=== PATIENT | male | born 1995 | race American Indian/Alaskan Native ===

== ENCOUNTER 2022-04-21 07:27 | Inpatient (IN) | payer SELFPAY ==
[2022-04-21] MEDS ORDERED: ONDANSETRON 4 MG/2 ML INJ IV ONE (08:02)
[2022-04-21] MEDS ORDERED: DICYCLOMINE 20 MG TAB PO ONE (08:02)
[2022-04-21] MEDS ORDERED: MORPHINE 4 MG/1 ML INJ IV ONE (08:02)
[2022-04-21] MEDS ORDERED: SODIUM CHLORIDE 0.9% 1000 ML 1,000 ML IV ONE (08:02)
[2022-04-21 09:04] LABS: Hematocrit 47.8 % (35.5-45.6); Hemoglobin 16.1 gm/dl (11.8-15.2); Mean Corpuscular HGB Conc 34 % (32-34); Mean Corpuscular Volume 95 fl (84-94); Platelet Count 347 K/mm3 (140-440); Red Blood Count 5.03 M/mm3 (3.65-5.03); Red Cell Distribution Width 15.1 % (13.2-15.2)
[2022-04-21] MEDS ORDERED: HYDROmorphone 1 MG/1 ML INJ IV ONE (09:13)
[2022-04-21 09:26] LABS: Alanine Aminotransferase 21 units/L (7-56); BUN/Creatinine Ratio 24; Blood Urea Nitrogen 19 mg/dL (9-20); Calcium 10.3 mg/dL (8.4-10.2); Hemolysis Index 24
[2022-04-21 10:15] LABS: Large Platelets Few; Platelet Estimate Consistent w Auto; Total Cells Counted 100
--- NOTE | 2022-04-21 10:25 | Cat Scan Report ---
CT ABDOMEN AND PELVIS WITH CONTRAST HISTORY: abd pain with n/v. Concern for appendicitis COMPARISON: None. TECHNIQUE: CT images of the abdomen and pelvis were obtained following administration of intravenous contrast. All CT scans at this location are performed using CT dose reduction for ALARA by means of automated exposure control. CONTRAST: 100 ml of intravenous contrast administered. FINDINGS: Lungs/bones: Lung bases are clear. No acute osseous abnormality identified. Abdomen/pelvis: There is considerable inflammatory change about the entire pancreas with probable re active inflammatory change along the duodenal C-loop. There is no organized fluid collection. No bili galileo or pancreatic ductal dilatation. No obvious stone disease or mass. No splenic vein thrombosis. Ho mogeneous pancreatic parenchyma. The liver, mildly distended but otherwise unremarkable gallbladder, spleen, adrenals, kidneys, and re mainder of the proximal GI tract appear unremarkable. The urinary bladder and prostate are unremarkable with no pelvic free fluid or acute colonic abnormal ity. IMPRESSION: 1. Moderate acute pancreatitis with no clear etiology seen on this exam. Signer Name: Shakir Curtis MD Signed: 04/21/2022 10:21 AM Workstation Name: [id number]
--- NOTE | 2022-04-21 10:51 | Emergency Department Report ---
<ANTWONGORDOFLORY - Last Filed: 04/21/22 11:11> ED Abdominal Pain HPI - General Chief Complaint: Abdominal Pain Stated Complaint: ABD PAIN/CHEST PAIN Time Seen by Provider: 04/21/22 08:01 Source: patient Mode of arrival: Ambulatory Limitations: No Limitations - History of Present Illness Initial Comments: This is a 26-year-old male nontoxic, well nourished in appearance, no acute signs of distress presents to the ED with c/o of nausea and vomiting and abdominal pain several days. Patient admits to alcohol consumption. Patient describes vomiting as food content and yellow gastric acid. Patient describes abdominal pain as cramping and aching with level of 10/10 diffuse with worse in the upper abdomen. Patient denies chest pain, short of breath, fever, hemoptysis, blood in stool, chills, headache, stiff neck, numbness or tingling. Patient denies any diarrhea or constipation. Denies any blood in stool. Patient denies any recent travels. Patient denies any allergies. MD Complaint: abdominal pain -: days(s) Location: diffuse Radiation: none Migration to: no migration Severity: mild Severity scale (0 -10): 10 Quality: cramping, aching Consistency: constant Improves With: nothing Worsens With: nothing Associated Symptoms: nausea, vomiting. denies: diarrhea, fever, chills, constipation, dysuria, hematemesis, hematochezia, melena, hematuria, anorexia, syncope - Related Data Allergies Allergy/AdvReac Type Severity Reaction Status Date / Time No Known Allergies Allergy Unverified 04/21/22 07:53 ED Review of Systems Comment: All other systems reviewed and negative Constitutional: denies: chills, fever Eyes: denies: eye pain, eye discharge, vision change ENT: denies: ear pain, throat pain Respiratory: denies: cough, shortness of breath, wheezing Cardiovascular: denies: chest pain, palpitations Endocrine: no symptoms reported Gastrointestinal: abdominal pain, nausea, vomiting. denies: diarrhea, constipation, hematemesis, melena, hematochezia Genitourinary: denies: urgency, dysuria Musculoskeletal: denies: back pain, joint swelling, arthralgia Skin: denies: rash, lesions Neurological: denies: headache, weakness, paresthesias Psychiatric: denies: anxiety, depression Hematological/Lymphatic: denies: easy bleeding, easy bruising ED Past Medical Hx - Past Medical History Previous Medical History?: No - Surgical History Past Surgical History?: No - Social History Smoking Status: Current Every Day Smoker Substance Use Type: Marijuana ED Physical Exam - General Limitations: No Limitations General appearance: alert, in no apparent distress - Head Head exam: Present: atraumatic, normocephalic - Eye Eye exam: Present: normal appearance - Neck Neck exam: Present: normal inspection, full ROM. Absent: lymphadenopathy - Respiratory Respiratory exam: Present: normal lung sounds bilaterally. Absent: respiratory distress, wheezes, rales, rhonchi, stridor, chest wall tenderness, accessory muscle use, decreased breath sounds, prolonged expiratory - Cardiovascular Cardiovascular Exam: Present: regular rate, normal rhythm, normal heart sounds. Absent: bradycardia, tachycardia, irregular rhythm, systolic murmur, diastolic murmur, rubs, gallop - GI/Abdominal GI/Abdominal exam: Present: soft, tenderness (diffuse), normal bowel sounds. Absent: distended, guarding, rebound, rigid, diminished bowel sounds - Extremities Exam Extremities exam: Present: normal inspection, full ROM, normal capillary refill. Absent: tenderness - Back Exam Back exam: Present: normal inspection, full ROM. Absent: tenderness, CVA tenderness (R), CVA tenderness (L), muscle spasm, paraspinal tenderness, vertebral tenderness, rash noted - Neurological Exam Neurological exam: Present: alert, oriented X3, normal gait - Psychiatric Psychiatric exam: Present: normal affect, normal mood - Skin Skin exam: Present: warm, dry, intact, normal color. Absent: rash ED Course - Reevaluation(s) Reevaluation #1: 04/21/22 10:48 Patient is speaking in full sentences with no signs of distress noted. - Consultations Consultation #1: 04/21/22 10:48 Patient has been consulted with Dr. Coley about patient history, physical exam, and labs/imaging results and agrees for admission.l Consultation #2: 04/21/22 11:11 Patient has been consulted with Dr. Presley about patient history, physical exam, and labs/imaging results and accepts patient to services. ED Medical Decision Making - Lab Data Result diagrams: 04/21/22 08:01 04/21/22 08:01 Lab Results 04/21/22 04/21/22 Range/Units 08:01 08:01 WBC 10.2 (4.5-11.0) K/mm3 RBC 5.03 (3.65-5.03) M/mm3 Hgb 16.1 H (11.8-15.2) gm/dl Hct 47.8 H (35.5-45.6) % MCV 95 H (84-94) fl MCH 32 (28-32) pg MCHC 34 (32-34) % RDW 15.1 (13.2-15.2) % Plt Count 347 (140-440) K/mm3 Add Manual Diff Complete Total Counted 100 Seg Neuts % (Manual) 71.0 H (40.0-70.0) % Band Neutrophils % 0 % Lymphocytes % (Manual) 15.0 (13.4-35.0) % Reactive Lymphs % (Man) 0 % Monocytes % (Manual) 8.0 H (0.0-7.3) % Eosinophils % (Manual) 1.0 (0.0-4.3) % Basophils % (Manual) 3.0 H (0.0-1.8) % Metamyelocytes % 2.0 % Myelocytes % 0 % Promyelocytes % 0 % Blast Cells % 0 % Nucleated RBC % Not Reportable Seg Neutrophils # Man 7.2 (1.8-7.7) K/mm3 Band Neutrophils # 0.0 K/mm3 Lymphocytes # (Manual) 1.5 (1.2-5.4) K/mm3 Abs React Lymphs (Man) 0.0 K/mm3 Monocytes # (Manual) 0.8 (0.0-0.8) K/mm3 Eosinophils # (Manual) 0.1 (0.0-0.4) K/mm3 Basophils # (Manual) 0.3 H (0.0-0.1) K/mm3 Metamyelocytes # 0.2 K/mm3 Myelocytes # 0.0 K/mm3 Promyelocytes # 0.0 K/mm3 Blast Cells # 0.0 K/mm3 WBC Morphology Not Reportable Hypersegmented Neuts Not Reportable Hyposegmented Neuts Not Reportable Hypogranular Neuts Not Reportable Smudge Cells Not Reportable Toxic Granulation Not Reportable Toxic Vacuolation Not Reportable Dohle Bodies Not Reportable Pelger-Huet Anomaly Not Reportable Marie Rods Not Reportable Platelet Estimate Consistent w auto Clumped Platelets Not Reportable Plt Clumps, EDTA Not Reportable Large Platelets Few Giant Platelets Not Reportable Platelet Satelliting Not Reportable Plt Morphology Comment Not Reportable RBC Morphology Not Reportable Dimorphic RBCs Not Reportable Polychromasia Not Reportable Hypochromasia Not Reportable Poikilocytosis Not Reportable Anisocytosis Not Reportable Microcytosis Not Reportable Macrocytosis Not Reportable Spherocytes Not Reportable Pappenheimer Bodies Not Reportable Sickle Cells Not Reportable Target Cells Not Reportable Tear Drop Cells Not Reportable Ovalocytes Not Reportable Helmet Cells Not Reportable [place] Bodies Not Reportable [place] Rings Not Reportable [place] Cells Not Reportable Bite Cells Not Reportable Crenated Cell Not Reportable Elliptocytes Not Reportable Acanthocytes (Spur) Not Reportable Rouleaux Not Reportable Hemoglobin C Crystals Not Reportable Schistocytes Not Reportable Malaria parasites Not Reportable Darryn Bodies Not Reportable Hem Pathologist Commnt No Sodium 137 (137-145) mmol/L Potassium 3.9 (3.6-5.0) mmol/L Chloride 97.8 L (98-107) mmol/L Carbon Dioxide 25 (22-30) mmol/L Anion Gap 18 mmol/L BUN 19 (9-20) mg/dL Creatinine 0.8 (0.8-1.3) mg/dL Estimated GFR > 60 ml/min BUN/Creatinine Ratio 24 % Glucose 145 H (75-100) mg/dL Calcium 10.3 H (8.4-10.2) mg/dL Total Bilirubin 1.40 H (0.1-1.2) mg/dL AST 32 (5-40) units/L ALT 21 (7-56) units/L Alkaline Phosphatase 84 (35-129) units/L Total Protein 8.8 H (6.3-8.2) g/dL Albumin 5.0 (3.9-5) g/dL Albumin/Globulin Ratio 1.3 % Lipase 2786 H (13-60) units/L - Radiology Data [facility] [address] [place] [address] Cat Scan Report Signed Patient: LLOYD ROSADO MR#: [id number] 93 : 1995 Acct:[id number] Age/Sex: 26 / M ADM Date: 04/21/22 Loc: ED Attending Dr: Ordering Physician: FLORY VEGA NP Date of Service: 04/21/22 Procedure(s): CT abdomen pelvis w con Accession Number(s): [id number] cc: FLORY VEGA NP CT ABDOMEN AND PELVIS WITH CONTRAST HISTORY: abd pain with n/v. Concern for appendicitis COMPARISON: None. TECHNIQUE: CT images of the abdomen and pelvis were obtained following administration of intravenous contrast. All CT scans at this location are performed using CT dose reduction for ALARA by means of automated exposure control. CONTRAST: 100 ml of intravenous contrast administered. FINDINGS: Lungs/bones: Lung bases are clear. No acute osseous abnormality identified. Abdomen/pelvis: There is considerable inflammatory change about the entire pancreas with probable reactive inflammatory change along the duodenal C-loop. There is no organized fluid collection. No biliary or pancreatic ductal dilatation. No obvious stone disease or mass. No splenic vein thrombosis. Homogeneous pancreatic parenchyma. The liver, mildly distended but otherwise unremarkable gallbladder, spleen, adrenals, kidneys, and remainder of the proximal GI tract appear unremarkable. The urinary bladder and prostate are unremarkable with no pelvic free fluid or acute colonic abnormality. IMPRESSION: 1. Moderate acute pancreatitis with no clear etiology seen on this exam. Signer Name: Shakir Curtis MD Signed: 04/21/2022 10:21 AM Workstation Name: [id number] Transcribed By: YADIRA Dictated By: Shakri Curtis MD Electronically Authenticated By: Shakir Curtis MD Signed Date/Time: 04/21/22 1021 DD/ 1018 TD/TT: - Medical Decision Making 26-year-old male that presents with acute pancreatitis. Patient is stable and was examined by me. Patient is notified of the lab results and CT results. Patient received medical treatment in ER which currently symptoms of pain is under control. Patient admitted with hospitalist. Educated on pancreatitis and alcohol consumption. At time of admission, the patient does not seem toxic or ill in appearance. No acute signs of distress noted. Patient agrees to admission treatment plan of care. No further questions noted by the patient. ED Disposition Clinical Impression: Elevated lipase Acute pancreatitis Qualifiers: Pancreatitis type: alcohol induced Acute pancreatitis complication: unspecified Qualified Code(s): K85.20 - Alcohol induced acute pancreatitis without necrosis or infection Nausea & vomiting Qualifiers: Vomiting type: unspecified Qualified Code(s): R11.2 - Nausea with vomiting, unspecified Abdominal pain Qualifiers: Abdominal location: generalized Qualified Code(s): R10.84 - Generalized abdominal pain Disposition: 09 ADMITTED INPATIENT Is pt being admited?: Yes Condition: Stable Referrals: FLORA FELIX MD [Primary Care Provider] - 3-5 Days Time of Disposition: 10:51 <CARMELO COLEY - Last Filed: 04/21/22 11:24> ED Review of Systems ROS: Stated complaint: ABD PAIN/CHEST PAIN Other details as noted in HPI ED Course Vital Signs 04/21/22 07:49 Temperature 97.8 F Pulse Rate 86 Respiratory 26 H Rate Blood Pressure 152/82 O2 Sat by Pulse 98 Oximetry - Reevaluation(s) Reevaluation #1: 04/21/22 11:24 Patient seen and examined, presenting with acute uncomplicated pancreatitis and markedly elevated lipase. Recommended admission for fluids, supportive care, and bowel rest. Patient agreeable to plan of care. Nurse practitioner to arrange admission with hospital physician. ED Medical Decision Making - Lab Data Result diagrams: 04/21/22 08:01 04/21/22 08:01 Critical care attestation.: If time is entered above; I have spent that time in minutes in the direct care of this critically ill patient, excluding procedure time. ED Disposition Is pt being admited?: Yes Does the pt Need Aspirin: No
[2022-04-21] MEDS ORDERED: ALBUTEROL 2.5 MG/3 ML NEBU IH PRN (11:19)
[2022-04-21] MEDS ORDERED: ACETAMINOPHEN 325 MG TAB PO PRN (11:19)
[2022-04-21] MEDS ORDERED: LORazepam 2 MG/ML VIAL IV PRN (11:22)
--- NOTE | 2022-04-21 11:23 | History and Physical Report ---
History of Present Illness Chief complaint: I feel sick History of present illness: 26 YO Male with ETOH Dependence, Nicotine Dependence presents to ED for evaluation. Patient reports I feel sick". Patient is lethargic with diminished cognition at the time of evaluation. Patient provides minimal history. Patient states that he has been feeling sick for the past 4 days. Patient acknowledges abdominal discomfort, nausea, multiple episodes of vomiting. Patient states the pain is 10/10, aching in nature, localized to the right upper quadrant without exacerbating or alleviating factors. Patient acknowledges nicotine dependence as well as alcohol dependence. Patient transported to [facility] via private vehicle for further care and evaluation of the aforementioned symptoms. The patient was seen and evaluated in the emergency department. All lab and imaging studies reviewed. Patient was found to have alcohol dependence complicated by acute pancreatitis. Patient admitted to medical floor due to increased risk of worsening symptoms. Patient treated with IV fluid resuscitation therapy and pain management. No reports of fever, chills, chest pain, palpitation, adductive cough, skin rash, recent contact, known exposure to COVID-19. No prior admission for review. No medication listed at time of admission for reconciliation. Advanced care planning conducted in ED. Past History Past Medical History: No medical history, other (See HPI) Past Surgical History: No surgical history, Other (Reviewed) Social history: single, smoking, alcohol abuse Family history: hypertension Medications and Allergies Allergies Allergy/AdvReac Type Severity Reaction Status Date / Time No Known Allergies Allergy Unverified 04/21/22 07:53 Active Meds: Active Medications Acetaminophen (Acetaminophen 325 Mg Tab) 650 mg PO Q4H PRN PRN Reason: Pain MILD(1-3)/Fever >100.5/MATHIS Albuterol (Albuterol 2.5 Mg/3 Ml Nebu) 2.5 mg IH Q4HRT PRN PRN Reason: Shortness Of Breath Hydromorphone HCl (Hydromorphone 0.5 Mg/0.5 Ml Inj) 0.5 mg IV Q8H PRN PRN Reason: Pain , Severe (7-10) Sodium Chloride (Nacl 0.9% 1000 Ml) 1,000 mls @ 150 mls/hr IV DIRECT PAULINO Thiamine HCl 100 mg/ Folic Acid 1 mg/ Multivitamins/Minerals 10 ml/ Sodium Ch loride 1,011.2 mls @ 250 mls/hr IV ONCE ONE Stop: 04/21/22 15:23 Lorazepam (Lorazepam 2 Mg/Ml Vial) 2 mg IV Q1HR PRN PRN Reason: CIWA-Ar 8-15 Ondansetron HCl (Ondansetron 4 Mg/2 Ml Inj) 4 mg IV Q8H PRN PRN Reason: Nausea And Vomiting Oxycodone/Acetaminophen (Oxycodone /Acetaminophen 5-325mg Tab) 1 tab PO Q6H PRN PRN Reason: Pain, Moderate (4-6) Sodium Chloride (Sodium Chloride 0.9% 10 Ml Flush Syringe) 10 ml IV BID PAULINO Sodium Chloride (Sodium Chloride 0.9% 10 Ml Flush Syringe) 10 ml IV PRN PRN PRN Reason: LINE FLUSH Review of Systems ROS unobtainable: due to mental status Exam - Constitutional Vitals: Temp Pulse Resp BP Pulse Ox 97.8 F 86 26 H 152/82 98 04/21/22 07:49 04/21/22 07:49 04/21/22 07:49 04/21/22 07:49 04/21/22 07:49 General appearance: Present: mild distress - EENT Eyes: Present: PERRL ENT: hearing intact, clear oral mucosa - Neck Neck: Present: supple, normal ROM - Respiratory Respiratory effort: normal Respiratory: bilateral: CTA - Cardiovascular Heart Sounds: Present: S1 & S2. Absent: rub, click - Extremities Extremities: pulses symmetrical, No edema Peripheral Pulses: within normal limits - Abdominal General gastrointestinal: Present: soft, tender Localized gastrointestinal: tender: epigastric periumbilical Male genitourinary: Present: normal - Integumentary Integumentary: Present: dry, clammy, decreased turgor - Musculoskeletal Musculoskeletal: generalized weakness - Psychiatric Psychiatric: no appropriate mood/affect, no memory intact - Neurologic Neurologic: CNII-XII intact, no focal deficits, moves all extremities, no gait normal Results - Labs CBC & Chem 7: 04/21/22 08:01 04/21/22 08:01 Labs: Abnormal lab results 04/21/22 04/21/22 Range/Units 08:01 08:01 Hgb 16.1 H (11.8-15.2) gm/dl Hct 47.8 H (35.5-45.6) % MCV 95 H (84-94) fl Seg Neuts % (Manual) 71.0 H (40.0-70.0) % Monocytes % (Manual) 8.0 H (0.0-7.3) % Basophils % (Manual) 3.0 H (0.0-1.8) % Basophils # (Manual) 0.3 H (0.0-0.1) K/mm3 Chloride 97.8 L (98-107) mmol/L Glucose 145 H (75-100) mg/dL Calcium 10.3 H (8.4-10.2) mg/dL Total Bilirubin 1.40 H (0.1-1.2) mg/dL Total Protein 8.8 H (6.3-8.2) g/dL Lipase 2786 H (13-60) units/L Assessment and Plan - Patient Problems (1) Acute pancreatitis Current Visit: Yes Status: Acute Qualifiers: Pancreatitis type: alcohol induced Acute pancreatitis complication: unspecified Qualified Code(s): K85.20 - Alcohol induced acute pancreatitis without necrosis or infection Plan to address problem: CT scan abdomen and pelvis, IV fluid resuscitation therapy, bowel rest, supportive care, lipase level, repeat lipase level in a.m., serial abdominal exam, pain control. Bond score: 1 (2) Intractable nausea and vomiting Current Visit: Yes Status: Acute Plan to address problem: Antiemetic therapy as needed, supportive care. (3) Volume depletion Current Visit: Yes Status: Acute Plan to address problem: IV fluid resuscitation therapy, monitor fluid balance. (4) Nicotine dependence Current Visit: Yes Status: Acute Qualifiers: Nicotine product type: cigarettes Substance use status: in withdrawal Qualified Code(s): F17.213 - Nicotine dependence, cigarettes, with withdrawal Plan to address problem: Smoking cessation counseling, supportive care, behavior change counseling, +15 minutes. (5) Alcohol dependence Current Visit: Yes Status: Acute Plan to address problem: Blood alcohol level, CIWA protocol, banana bag, supportive care. (6) DVT prophylaxis Current Visit: Yes Status: Acute Plan to address problem: SCDs bilateral lower extremities while in bed (7) Advance care planning Current Visit: Yes Status: Acute Plan to address problem: Disease education data, care plan discussed, diagnosis discussed, prognosis discussed, patient is full code. +30 minutes. (8) Preventative health care Current Visit: Yes Status: Acute Plan to address problem: Patient counseled regarding alcohol cessation, risk factor reduction, balanced diet, patient instructed to attend Alcoholics Anonymous meeting at discharge. +30 minutes.
[2022-04-21] MEDS: HYDROmorphone 0.5 MG/0.5 ML INJ IV PRN ×2 (12:11→21:25)
[2022-04-21] MEDS: ONDANSETRON 4 MG/2 ML INJ IV PRN ×2 (12:12→17:16)
[2022-04-21] MEDS: SODIUM CHLORIDE 0.9% 1000 ML 1,000 ML IV SCH ×2 (12:12→21:28)
[2022-04-21] MEDS ORDERED: THIAMINE 100 MG, FOLIC ACID 1 MG, MULTIPLE VITAMIN INJ, ADULT 10 ML in SODIUM CHLORIDE ... IV ONE (12:21)
[2022-04-21] MEDS: oxyCODONE /ACETAMINOPHEN 5-325MG TAB PO PRN (14:29)
[2022-04-21] MEDS ORDERED: ONDANSETRON 4 MG/2 ML INJ IV PRN (17:01)
[2022-04-21] MEDS ORDERED: ALUM-MAG HYDROXIDE-SIMETHICONE 200-200-20MG/5ML ORAL LIQD 30 ML PO PRN (17:55)
[2022-04-22] MEDS: HYDROmorphone 0.5 MG/0.5 ML INJ IV PRN ×3 (04:46→21:41)
[2022-04-22 05:38] LABS: Basophils % (Auto) 0.1 % (0.0-1.8); Eosinophils % (Auto) 0.1 % (0.0-4.3); Hematocrit 46.6 % (35.5-45.6); Hemoglobin 15.3 gm/dl (11.8-15.2); Lymphocytes # (Auto) 0.6 K/mm3 (1.2-5.4); Lymphocytes % (Auto) 4.2 % (13.4-35.0); Mean Corpuscular HGB Conc 33 % (32-34); Mean Corpuscular Volume 97 fl (84-94); Monocytes # (Auto) 0.8 K/mm3 (0.0-0.8); Monocytes % (Auto) 5.8 % (0.0-7.3); Platelet Count 264 K/mm3 (140-440); Red Blood Count 4.82 M/mm3 (3.65-5.03); Red Cell Distribution Width 15.2 % (13.2-15.2)
[2022-04-22 06:01] LABS: Alanine Aminotransferase 16 units/L (7-56); BUN/Creatinine Ratio 23; Blood Urea Nitrogen 18 mg/dL (9-20); Calcium 9.2 mg/dL (8.4-10.2); Hemolysis Index 41
[2022-04-22] MEDS: oxyCODONE /ACETAMINOPHEN 5-325MG TAB PO PRN ×2 (07:28→16:28)
[2022-04-22] MEDS: D5W/0.9% NACL 1,000 ML IV SCH ×3 (09:46→23:45)
--- NOTE | 2022-04-22 12:34 | Progress Note ---
Assessment and Plan 26 YO Male with ETOH Dependence, Nicotine Dependence presents to ED for abdominal discomfort, nausea, multiple episodes of vomiting for 4 days. All lab and imaging studies reviewed. Patient was found to have alcohol dependence complicated by acute pancreatitis. Patient admitted to medical floor due to increased risk of worsening symptoms. 04/22: Cont to have abdominal pain, keep NPO, follow lipase, will change iv fluid to D5NS Assessment and plan: (1) Acute pancreatitis Current Visit: Yes Status: Acute Qualifiers: Pancreatitis type: alcohol induced Acute pancreatitis complication: unspeci fied Qualified Code(s): K85.20 - Alcohol induced acute pancreatitis without necrosis or infection Plan to address problem: CT scan abdomen and pelvis, IV fluid resuscitation therapy, bowel rest, supportive care, lipase level, repeat lipase level in a.m., serial abdominal exam, pain control. (2) Intractable nausea and vomiting Current Visit: Yes Status: Acute Plan to address problem: Antiemetic therapy as needed, supportive care. (3) Volume depletion Current Visit: Yes Status: Acute Plan to address problem: IV fluid resuscitation therapy, monitor fluid balance. (4) Nicotine dependence Current Visit: Yes Status: Acute Qualifiers: Nicotine product type: cigarettes Substance use status: in withdrawal Philip lified Code(s): F17.213 - Nicotine dependence, cigarettes, with withdrawal Plan to address problem: Smoking cessation counseling, supportive care, behavior change counseling, +15 minutes. (5) Alcohol dependence Current Visit: Yes Status: Acute Plan to address problem: Blood alcohol level, CIWA protocol, banana bag, supportive care. (6) DVT prophylaxis Current Visit: Yes Status: Acute Plan to address problem: SCDs bilateral lower extremities while in bed (7) Advance care planning Current Visit: Yes Status: Acute Plan to address problem: Disease education data, care plan discussed, diagnosis discussed, prognosis discussed, patient is full code. +30 minutes. (8) Preventative health care Current Visit: Yes Status: Acute Plan to address problem: Patient counseled regarding alcohol cessation, risk factor reduction, balanced diet, patient instructed to attend Alcoholics Anonymous meeting at discharge. +30 minutes. Subjective Date of service: 04/22/22 Interval history: Patient seen and examined c/o abdominal pain and nausea vitals noted and stable Objective - Constitutional Vitals: Vital Signs - 12hr 04/22/22 04/22/22 04/22/22 03:00 07:20 09:44 Temperature 98.8 F Pulse Rate 92 H Respiratory 18 20 Rate Blood Pressure 171/95 O2 Sat by Pulse 99 100 98 Oximetry General appearance: Present: mild distress, well-nourished - EENT Eyes: PERRL, EOM intact ENT: hearing intact, clear oral mucosa Ears: bilateral: normal - Neck Neck: supple, normal ROM - Respiratory Respiratory effort: normal Respiratory: bilateral: CTA - Cardiovascular Rhythm: regular Heart Sounds: Present: S1 & S2. Absent: gallop, rub Extremities: pulses intact, No edema, normal color, Full ROM - Gastrointestinal General gastrointestinal: Present: soft, tender, non-distended, normal bowel sounds - Integumentary Integumentary: clear, warm, dry - Musculoskeletal Musculoskeletal: 1, strength equal bilaterally - Neurologic Neurologic: moves all extremities - Psychiatric Psychiatric: memory intact, appropriate mood/affect, intact judgment & insight - Labs CBC & Chem 7: 04/22/22 04:34 04/22/22 04:34 Labs: Abnormal lab results 04/22/22 04/22/22 04/22/22 Range/Units 04:34 04:34 05:04 WBC 14.0 H (4.5-11.0) K/mm3 Hgb 15.3 H (11.8-15.2) gm/dl Hct 46.6 H (35.5-45.6) % MCV 97 H (84-94) fl Lymph % (Auto) 4.2 L (13.4-35.0) % Lymph # (Auto) 0.6 L (1.2-5.4) K/mm3 Seg Neutrophils % 89.8 H (40.0-70.0) % Seg Neutrophils # 12.6 H (1.8-7.7) K/mm3 Glucose 103 H (75-100) mg/dL Lipase 2251 H (13-60) units/L
[2022-04-22] MEDS: ENOXAPARIN 40 MG/0.4 ML INJ SUB-Q SCH (21:40)
[2022-04-22] MEDS: cloNIDine 0.2 MG TAB PO SCH (21:40)
[2022-04-23] MEDS: HYDROmorphone 0.5 MG/0.5 ML INJ IV PRN ×4 (03:23→22:07)
[2022-04-23 07:26] LABS: Blood Urea Nitrogen 12 mg/dL (9-20); Calcium 8.8 mg/dL (8.4-10.2); Hemolysis Index 6
[2022-04-23 07:29] LABS: BUN/Creatinine Ratio 17
--- NOTE | 2022-04-23 08:59 | Progress Note ---
Assessment and Plan Assessment and plan: 26 YO Male with ETOH Dependence, Nicotine Dependence presents to ED for abdominal discomfort, nausea, multiple episodes of vomiting for 4 days. All lab and imaging studies reviewed. Patient was found to have alcohol dependence complicated by acute pancreatitis. Patient admitted to medical floor due to increased risk of worsening symptoms. 04/22: Cont to have abdominal pain, keep NPO, follow lipase, will change iv fluid to D5NS Assessment and plan: -- Acute pancreatitis CT scan abdomen and pelvis, IV fluid resuscitation therapy, bowel rest, supportive care, lipase level, repeat lipase level in a.m., serial abdominal exam, pain control. -- Intractable nausea and vomiting Antiemetic therapy as needed, supportive care. --Volume depletion IV fluid resuscitation therapy, monitor fluid balance. --Hyponatremia; Normal saline, monitor electrolytes Supportive care --Nicotine dependence Smoking cessation counseling, supportive care, behavior change counseling, +15 minutes. --Alcohol dependence Blood alcohol level, CIWA protocol, banana bag, supportive care. Counseling done strongly advised to quit Alcohol intake advised alcohol rehabilitation, advised to attend [facility] support group Monitor for any withdrawal symptoms -- DVT prophylaxis SCDs bilateral lower extremities while in bed --Advance care planning Disease education data, care plan discussed, diagnosis discussed, prognosis discussed, patient is full code. +30 minutes. --Preventative health care Patient counseled regarding alcohol cessation, risk factor reduction, balanced diet, patient instructed to attend Alcoholics Anonymous meeting at discharge. +30 minutes. Closely monitor the patient and adjust management as needed Plan of care reviewed with the patient and his nurse Possible discharge home tomorrow if stable History Interval history: I have seen and examined the patient at the bedside Patient's chart and medications reviewed Patient complains of vague abdominal pain N.p.o. status, wants to eat History of alcohol abuse Vital signs noted Hospitalist Physical - Constitutional Vitals: Temp Pulse Resp BP Pulse Ox 98.4 F 111 H 20 151/96 100 04/23/22 04:49 04/23/22 04:49 04/23/22 04:49 04/23/22 04:49 04/23/22 04:49 General appearance: Present: mild distress, well-nourished - EENT Eyes: Present: PERRL, EOM intact - Neck Neck: Present: supple, normal ROM - Respiratory Respiratory effort: normal Respiratory: bilateral: diminished, negative: rales, rhonchi, wheezing - Cardiovascular Rhythm: regular Heart Sounds: Present: S1 & S2 - Extremities Extremities: no ischemia, No edema - Abdominal General gastrointestinal: soft, non-tender, non-distended, normal bowel sounds - Integumentary Integumentary: Present: clear, warm - Psychiatric Psychiatric: appropriate mood/affect, cooperative - Neurologic Neurologic: CNII-XII intact, moves all extremities Results - Labs CBC & Chem 7: 04/22/22 04:34 04/23/22 06:53 Labs: Laboratory Last Values WBC 14.0 K/mm3 (4.5-11.0) H 04/22/22 04:34 RBC 4.82 M/mm3 (3.65-5.03) 04/22/22 04:34 Hgb 15.3 gm/dl (11.8-15.2) H 04/22/22 04:34 Hct 46.6 % (35.5-45.6) H 04/22/22 04:34 MCV 97 fl (84-94) H 04/22/22 04:34 MCH 32 pg (28-32) 04/22/22 04:34 MCHC 33 % (32-34) 04/22/22 04:34 RDW 15.2 % (13.2-15.2) 04/22/22 04:34 Plt Count 264 K/mm3 (140-440) 04/22/22 04:34 Lymph % (Auto) 4.2 % (13.4-35.0) L 04/22/22 04:34 [place] % (Auto) 5.8 % (0.0-7.3) 04/22/22 04:34 Eos % (Auto) 0.1 % (0.0-4.3) 04/22/22 04:34 Baso % (Auto) 0.1 % (0.0-1.8) 04/22/22 04:34 Lymph # (Auto) 0.6 K/mm3 (1.2-5.4) L 04/22/22 04:34 [place] # (Auto) 0.8 K/mm3 (0.0-0.8) 04/22/22 04:34 Eos # (Auto) 0.0 K/mm3 (0.0-0.4) 04/22/22 04:34 Baso # (Auto) 0.0 K/mm3 (0.0-0.1) 04/22/22 04:34 Add Manual Diff Complete 04/21/22 08:01 Total Counted 100 04/21/22 08:01 Seg Neutrophils % 89.8 % (40.0-70.0) H 04/22/22 04:34 Seg Neuts % (Manual) 71.0 % (40.0-70.0) H 04/21/22 08:01 Band Neutrophils % 0 % 04/21/22 08:01 Lymphocytes % (Manual) 15.0 % (13.4-35.0) 04/21/22 08:01 Reactive Lymphs % (Man) 0 % 04/21/22 08:01 Monocytes % (Manual) 8.0 % (0.0-7.3) H 04/21/22 08:01 Eosinophils % (Manual) 1.0 % (0.0-4.3) 04/21/22 08:01 Basophils % (Manual) 3.0 % (0.0-1.8) H 04/21/22 08:01 Metamyelocytes % 2.0 % 04/21/22 08:01 Myelocytes % 0 % 04/21/22 08:01 Promyelocytes % 0 % 04/21/22 08:01 Blast Cells % 0 % 04/21/22 08:01 Nucleated RBC % Not Reportable 04/21/22 08:01 Seg Neutrophils # 12.6 K/mm3 (1.8-7.7) H 04/22/22 04:34 Seg Neutrophils # Man 7.2 K/mm3 (1.8-7.7) 04/21/22 08:01 Band Neutrophils # 0.0 K/mm3 04/21/22 08:01 Lymphocytes # (Manual) 1.5 K/mm3 (1.2-5.4) 04/21/22 08:01 Abs React Lymphs (Man) 0.0 K/mm3 04/21/22 08:01 Monocytes # (Manual) 0.8 K/mm3 (0.0-0.8) 04/21/22 08:01 Eosinophils # (Manual) 0.1 K/mm3 (0.0-0.4) 04/21/22 08:01 Basophils # (Manual) 0.3 K/mm3 (0.0-0.1) H 04/21/22 08:01 Metamyelocytes # 0.2 K/mm3 04/21/22 08:01 Myelocytes # 0.0 K/mm3 04/21/22 08:01 Promyelocytes # 0.0 K/mm3 04/21/22 08:01 Blast Cells # 0.0 K/mm3 04/21/22 08:01 WBC Morphology Not Reportable 04/21/22 08:01 Hypersegmented Neuts Not Reportable 04/21/22 08:01 Hyposegmented Neuts Not Reportable 04/21/22 08:01 Hypogranular Neuts Not Reportable 04/21/22 08:01 Smudge Cells Not Reportable 04/21/22 08:01 Toxic Granulation Not Reportable 04/21/22 08:01 Toxic Vacuolation Not Reportable 04/21/22 08:01 Dohle Bodies Not Reportable 04/21/22 08:01 Pelger-Huet Anomaly Not Reportable 04/21/22 08:01 Marie Rods Not Reportable 04/21/22 08:01 Platelet Estimate Consistent w auto 04/21/22 08:01 Clumped Platelets Not Reportable 04/21/22 08:01 Plt Clumps, EDTA Not Reportable 04/21/22 08:01 Large Platelets Few 04/21/22 08:01 Giant Platelets Not Reportable 04/21/22 08:01 Platelet Satelliting Not Reportable 04/21/22 08:01 Plt Morphology Comment Not Reportable 04/21/22 08:01 RBC Morphology Not Reportable 04/21/22 08:01 Dimorphic RBCs Not Reportable 04/21/22 08:01 Polychromasia Not Reportable 04/21/22 08:01 Hypochromasia Not Reportable 04/21/22 08:01 Poikilocytosis Not Reportable 04/21/22 08:01 Anisocytosis Not Reportable 04/21/22 08:01 Microcytosis Not Reportable 04/21/22 08:01 Macrocytosis Not Reportable 04/21/22 08:01 Spherocytes Not Reportable 04/21/22 08:01 Pappenheimer Bodies Not Reportable 04/21/22 08:01 Sickle Cells Not Reportable 04/21/22 08:01 Target Cells Not Reportable 04/21/22 08:01 Tear Drop Cells Not Reportable 04/21/22 08:01 Ovalocytes Not Reportable 04/21/22 08:01 Helmet Cells Not Reportable 04/21/22 08:01 Sanches-Thorndale Bodies Not Reportable 04/21/22 08:01 [place] Rings Not Reportable 04/21/22 08:01 Tho Cells Not Reportable 04/21/22 08:01 Bite Cells Not Reportable 04/21/22 08:01 Crenated Cell Not Reportable 04/21/22 08:01 Elliptocytes Not Reportable 04/21/22 08:01 Acanthocytes (Spur) Not Reportable 04/21/22 08:01 Rouleaux Not Reportable 04/21/22 08:01 Hemoglobin C Crystals Not Reportable 04/21/22 08:01 Schistocytes Not Reportable 04/21/22 08:01 Malaria parasites Not Reportable 04/21/22 08:01 Darryn Bodies Not Reportable 04/21/22 08:01 Hem Pathologist Commnt No 04/21/22 08:01 Sodium 133 mmol/L (137-145) L 04/23/22 06:53 Potassium 3.8 mmol/L (3.6-5.0) 04/23/22 06:53 Chloride 97.6 mmol/L (98-107) L 04/23/22 06:53 Carbon Dioxide 26 mmol/L (22-30) 04/23/22 06:53 Anion Gap 13 mmol/L 04/23/22 06:53 BUN 12 mg/dL (9-20) 04/23/22 06:53 Creatinine 0.7 mg/dL (0.8-1.3) L 04/23/22 06:53 Estimated GFR > 60 ml/min 04/23/22 06:53 BUN/Creatinine Ratio 17 % 04/23/22 06:53 Glucose 99 mg/dL (75-100) 04/23/22 06:53 Calcium 8.8 mg/dL (8.4-10.2) 04/23/22 06:53 Total Bilirubin 1.10 mg/dL (0.1-1.2) 04/22/22 04:34 AST 31 units/L (5-40) 04/22/22 04:34 ALT 16 units/L (7-56) 04/22/22 04:34 Alkaline Phosphatase 78 units/L (35-129) 04/22/22 04:34 Lactate Dehydrogenase 346 units/L (91-180) H 04/21/22 08:01 Total Protein 7.1 g/dL (6.3-8.2) 04/22/22 04:34 Albumin 4.0 g/dL (3.9-5) 04/22/22 04:34 Albumin/Globulin Ratio 1.3 % 04/22/22 04:34 Lipase 670 units/L (13-60) H 04/23/22 06:53 Plasma/Serum Alcohol < 0.01 % (0-0.07) 04/21/22 Unknown Syed/IV: Voiding Method Toilet Active Medications - Current Medications Current Medications: Generic Name Dose Route Start Last Admin Trade Name Freq PRN Reason Stop Dose Admin Acetaminophen 650 mg 04/21/22 11:19 Acetaminophen 325 Mg Tab PO Q4H PRN Pain MILD(1-3)/Fever >100.5/MATHIS Al Hydrox/Mg Hydrox/Simethicone 15 ml 04/21/22 17:55 04/21/22 18:09 Alum-Mag Hydroxide-Simethicone [id number]/5ml Oral Liqd 30 Ml PO 15 ml Q4H PRN Administration Indigestion Albuterol 2.5 mg 04/21/22 11:19 Albuterol 2.5 Mg/3 Ml Nebu IH Q4HRT PRN Shortness Of Breath Clonidine HCl 0.2 mg 04/22/22 22:00 04/22/22 21:40 Clonidine 0.2 Mg Tab PO 0.2 mg Q12HR PAULINO Administration Enoxaparin Sodium 40 mg 04/22/22 22:00 04/22/22 21:40 Enoxaparin 40 Mg/0.4 Ml Inj SUB-Q 40 mg QDAY@2200 PAULINO Administration Protocol Hydromorphone HCl 0.5 mg 04/22/22 20:30 04/23/22 03:23 Hydromorphone 0.5 Mg/0.5 Ml Inj IV 0.5 mg Q3H PRN Administration Pain , Severe (7-10) Dextrose/Sodium Chloride 1,000 mls @ 150 mls/hr 04/22/22 10:00 04/22/22 23:45 D5ns IV 150 mls/hr DIRECT PAULINO Administration Lorazepam 2 mg 04/21/22 11:22 04/22/22 00:17 Lorazepam 2 Mg/Ml Vial IV 2 mg Q1HR PRN Administration Yaya 8-15 Ondansetron HCl 4 mg 04/21/22 17:01 Ondansetron 4 Mg/2 Ml Inj IV Q4H PRN Nausea And Vomiting Oxycodone/Acetaminophen 1 tab 04/21/22 11:19 04/22/22 16:28 Oxycodone /Acetaminophen 5-325mg Tab PO 1 tab Q6H PRN Administration Pain, Moderate (4-6) Sodium Chloride 10 ml 04/21/22 22:00 04/22/22 21:40 Sodium Chloride 0.9% 10 Ml Flush Syringe IV 10 ml BID PAULINO Administration Sodium Chloride 10 ml 04/21/22 11:19 Sodium Chloride 0.9% 10 Ml Flush Syringe IV PRN PRN LINE FLUSH
[2022-04-23] MEDS: cloNIDine 0.2 MG TAB PO SCH ×2 (09:09→22:08)
[2022-04-23] MEDS: oxyCODONE /ACETAMINOPHEN 5-325MG TAB PO PRN (09:09)
[2022-04-23] MEDS: D5W/0.9% NACL 1,000 ML IV SCH ×3 (09:11→22:07)
[2022-04-23] MEDS: ENOXAPARIN 40 MG/0.4 ML INJ SUB-Q SCH (22:09)
[2022-04-24] MEDS: HYDROmorphone 0.5 MG/0.5 ML INJ IV PRN (04:31)
[2022-04-24] MEDS: D5W/0.9% NACL 1,000 ML IV SCH (04:31)
[2022-04-24] MEDS: cloNIDine 0.2 MG TAB PO SCH (09:41)
--- NOTE | 2022-04-24 10:09 | Discharge Summary ---
Providers - Providers Date of Admission: 04/21/22 11:19 Date of discharge: 04/24/22 Attending physician: NICK SABILLON Primary care physician: FLORA FELIX Hospitalization Reason for admission: Feeling sick, abdominal pain, acute pancreatitis Condition: Stable Pertinent studies: CT abdomen and pelvis; acute pancreatitis Hospital course: 26-year-old -[place] male patient with significant past medical history of chronic alcohol use and dependence, ongoing tobacco use was admitted through the emergency room with history of not feeling well and initial evaluation in the emergency room findings consistent with acute pancreatitis on CT as well as very high lipase levels. Patient was admitted to the hospital placed on n.p.o. status with supportive care of IV fluids, pain medications, gradually monitored pancreatic enzymes. Pancreatic enzymes slowly but gradually improved as patient's abdominal pain also started to ease up, started on clear liquids and gradually advance to soft diet today Lipase levels improved from [id number] today, Patient did not have any new symptoms Patient is hemodynamically and clinically stable at discharge, Follow-up with private GI for further evaluation and private MD for his medical needs Patient strongly counseled alcohol rehabilitation, alcohol Anonymous group supp ort and strictly advised to quit alcohol intake as well as tobacco use Patient verbalized understanding patient was closely monitored for alcohol withdrawal symptoms on CIWA protocol Patient did not have any withdrawal symptoms at this point. Patient is being discharged today in stable condition Discharge diagnosis: -- Acute pancreatitis CT scan abdomen and pelvis, IV fluid resuscitation therapy, bowel rest, supportive care, lipase level, repeat lipase level in a.m., serial abdominal exam, pain control. -- Intractable nausea and vomiting Antiemetic therapy as needed, supportive care. --Volume depletion IV fluid resuscitation therapy, monitor fluid balance. --Hyponatremia; Normal saline, monitor electrolytes Supportive care --Nicotine dependence Smoking cessation counseling, supportive care, behavior change counseling, +15 minutes. --Alcohol dependence Blood alcohol level, CIWA protocol, banana bag, supportive care. Counseling done strongly advised to quit Alcohol intake advised alcohol rehabilitation, advised to attend [facility] support group Monitor for any withdrawal symptoms Stable at discharge Disposition: 01 HOME / SELF CARE / HOMELESS Final Discharge Diagnosis (Prints w/discharge instructions): Acute pancreatitis improved. Intractable nausea vomiting improved. Volume depletion corrected. Hyponatremia mild improvement. Chronic alcohol use/advised to quit alcohol intake. Ongoing tobacco use/smoking cessation counseling done Time spent for discharge: 35 min Core Measure Documentation - Palliative Care Palliative Care/ Comfort Measures: Not Applicable - Core Measures Any of the following diagnoses?: none Exam - Constitutional Vitals: Temp Pulse Resp BP Pulse Ox 98.0 F 103 H 22 134/85 97 04/24/22 05:27 04/24/22 09:41 04/24/22 05:27 04/24/22 05:27 04/24/22 05:27 General appearance: Present: no acute distress, well-nourished - EENT Eyes: Present: PERRL, EOM intact - Neck Neck: Present: supple, normal ROM - Respiratory Respiratory effort: normal Respiratory: bilateral: diminished, negative: rales, rhonchi, wheezing - Cardiovascular Rhythm: regular Heart Sounds: Present: S1 & S2 - Extremities Extremities: no ischemia, pulses intact Peripheral Pulses: within normal limits - Abdominal General gastrointestinal: Present: soft, non-tender, non-distended, normal bowel sounds - Integumentary Integumentary: Present: clear, warm - Musculoskeletal Musculoskeletal: strength equal bilaterally, generalized weakness - Psychiatric Psychiatric: appropriate mood/affect, cooperative - Neurologic Neurologic: CNII-XII intact, moves all extremities Plan Activity: advance as tolerated, fall precautions, other (Do not drink and drive or operate heavy machinery) Diet: other (Soft diet, advance as tolerated) Special Instructions: smoking cessation, other (Advised to quit alcohol intake) Additional Instructions: Strongly advised to quit alcohol intake, seek alcohol rehabilitation. Also advised to join alcohol Anonymous support group. Strongly advised not to drink alcohol and drive or operate heavy missionary. Advised smoking cessation, nicotine patch as needed. If you have worsening symptoms contact MD or go to the nearest emergency room as needed Follow up with: FLORA FELIX MD [Primary Care Provider] - 3-5 Days DOUGLAS CAVANAUGH MD [Staff Physician] - 7 Days Prescriptions: cloNIDine [Catapres] 0.2 mg PO Q12HR #30 tablet Folic Acid 1 mg PO DAILY #30 Multivitamin [Multiple Vitamins] 1 each PO BID #60 Famotidine [Pepcid] 10 mg PO BID #30 tablet Thiamine HCl [Vitamin B-1] 100 mg PO DAILY #30 Ondansetron [Zofran Odt] 4 mg PO Q8HR #15 tabtoo
[2022-04-24 12:46] VITALS: BP 148/85
== END 2022-04-24 14:40 | disposition home or self-care (01) | DRG 439 ==
LOC: ED 07:27 → 3A 11:19
PROVIDERS: ADMIT Internal Medicine; ATTEND Internal Medicine
DX: K85.20 Alcohol induced acute pancreatitis without necrosis or infection (principal); F17.213 Nicotine dependence, cigarettes, with withdrawal; E87.1 Hypo-osmolality and hyponatremia; Y90.9 Presence of alcohol in blood, level not specified; E86.9 Volume depletion, unspecified; F10.20 Alcohol dependence, uncomplicated; Z79.899 Other long term (current) drug therapy; Z82.49 Family history of ischemic heart disease and other diseases of the circulatory system; Z71.6 Tobacco abuse counseling; Z71.41 Alcohol abuse counseling and surveillance of alcoholic
CPT/HCPCS: 36415; 74177; 80048; 80053; 80320; 83615; 83690; 85007; 85025; 94640; G0378; J3490; G0480; J1170; J1650; J2060; J2270; J2405; J3411; J7030; J7042; Q9967